=== PATIENT | female | born 1990 | race African-American/Black ===

== ENCOUNTER 2017-09-28 17:14 | Emergency (ER) | payer SELFPAY ==
[~2017-09-28] VITALS: Ht 152.4 cm; Wt 75.0 kg
[~2017-09-28 17:14] MED LIST: CIPR500T4 PO; IBUP-232 PO
[2017-09-28 17:24] VITALS: BP 135/80; PULSE 77; RESP 18; TEMP 98; O2SAT 100
[2017-09-28 18:07] LABS: BACTERIA, URINE OCC /hpf; BILIRUBIN, URINE NEG (NEG); BLOOD, URINE NEG (NEG); GLUCOSE,URINE NEG (NEG); KETONE, URINE NEG (NEG); MUCUS URINE FEW /lpf (OCC); NITRITE,URINE NEG (NEG); PH, URINE 5.5 (5.0-8.5); SQUAMOUS EPITHELIAL CELL URINE 2 /hpf (0-5); URINE COLOR LIGHT-YELLOW (YELLW/STRAW); URINE LEUKOCYTE ESTERASE SMALL (NEG)
[2017-09-28] MEDS ORDERED: CEPH-460 PO (18:31)
--- NOTE | 2017-09-28 18:32 | PD ---
HPI Chief Complaint: Abdominal Pain Time Seen by Provider: 17:42 Travel History International Travel<30 days: No Contact w/Intl Traveler<30days: No Traveled to known affect area: No History of Present Illness HPI 27-year-old female complains of vaginal spotting for 1-1/2 days. She took several regnancy test at home and they are all negative. Last menstruation was 1 month ago. No abnormal discharge. No fever or vomiting. No urinary complaint. Location genitourinary. severity mild. PFSH Past Medical History Medical History: Denies Significant Hx Diminished Hearing: No Tetanus Vaccination: Unknown Influenza Vaccination: No ?: Unknown LMP: JULY 2017 Past Surgical History Surgical History: No Previous Surgery Social History Alcohol Use: Yes (occasionally) Tobacco Use: Yes (BLACK AND MILDS) Substance Use: No Allergies-Medications (Allergen,Severity, Reaction): Coded Allergies: No Known Allergies (Unverified , 06/12/14) Reported Meds & Prescriptions Reported Meds & Active Scripts Active Cipro (Ciprofloxacin HCl) 500 Mg Tab 500 Mg PO BID Motrin (Ibuprofen) 600 Mg Tab 600 Mg PO TID Review of Systems Except as stated in HPI: all other systems reviewed are Neg General / Constitutional: No: Fever Physical Exam Narrative GENERAL: 27-year-old female pleasant well-nourished well-developed Vital Signs Date Time Temp Pulse Resp B/P (MAP) Pulse Ox O2 Delivery O2 Flow Rate FiO2 18 17:24 98.0 77 18 135/80 (98) 100 SKIN: Warm and dry. HEAD: Atraumatic. Normocephalic. EYES: Pupils equal and round. No scleral icterus. No injection or drainage. ENT: No nasal bleeding or discharge. Mucous membranes pink and moist. NECK: Trachea midline. No JVD. CARDIOVASCULAR: Regular rate and rhythm. RESPIRATORY: No accessory muscle use. Clear to auscultation. Breath sounds equal bilaterally. GASTROINTESTINAL: Abdomen soft, non-tender, nondistended. Hepatic and splenic margins not palpable. MUSCULOSKELETAL: Extremities without clubbing, cyanosis, or edema. No obvious deformities. NEUROLOGICAL: Awake and alert. No obvious cranial nerve deficits. Motor grossly within normal limits. Five out of 5 muscle strength in the arms and legs. Normal speech. PSYCHIATRIC: Appropriate mood and affect; insight and judgment normal. Data Data Last Documented VS Vital Signs Date Time Temp Pulse Resp B/P (MAP) Pulse Ox O2 Delivery O2 Flow Rate FiO2 09/28/17 17:24 98.0 77 18 135/80 (98) 100 Orders Orders Beta Hcg (Quant/Titer) (09/28/17 17:42) Urinalysis - C+S If Indicated (09/28/17 17:42) Ed Urine Pregnancytest Poc (09/28/17 17:42) Urine Culture (09/28/17 17:45) Labs Laboratory Tests Test 09/28/17 17:45 Urine Color LIGHT-YELLOW Urine Turbidity CLEAR Urine pH 5.5 Urine Specific Adrian 1.024 Urine Protein NEG mg/dL Urine Glucose (UA) NEG mg/dL Urine Ketones NEG mg/dL Urine Occult Blood NEG Urine Nitrite NEG Urine Bilirubin NEG Urine Urobilinogen LESS THAN 2.0 MG/DL Urine Leukocyte Esterase SMALL Urine RBC 1 /hpf Urine WBC 9 /hpf Urine Squamous Epithelial Cells 2 /hpf Urine Bacteria OCC /hpf Urine Mucus FEW /lpf Microscopic Urinalysis Comment CULTURE INDICATED Human Chorionic Gonadotropin, Quant LESS THAN 1 MIU/ML MDM Medical Decision Making Medical Screen Exam Complete: Yes Emergency Medical Condition: Yes Medical Record Reviewed: Yes Differential Diagnosis IUP, UTI, ectopic , ov torsion, appendicitis, TOA, cervicitis, BV, Trichomoniasis, ov cyst, hernia, mittelschmerz, pain from menstruation Narrative Course Urine is negative Urinalysis could be consistent with UTI with leukocytes and bacteria and a few WBCs The beta is less than 1 Diagnosis Primary Impression: Pyuria Referrals: Primary Care Physician call for appointment Med/Other Pt SpecificInfo: Prescription(s) given Scripts Cephalexin (Keflex) 500 Mg Cap 500 MG PO Q8H for Infection for 3 Days, #9 CAP 0 Refills Prov: Brant Jauregui MD 09/28/17 Disposition: 01 DISCHARGE HOME Condition: Stable Brant Jauregui MD September 28, 2017 18:32
== END 2017-09-28 18:41 | disposition home or self-care (01) ==
LOC: NEPD 17:14
DX: N39.0 Urinary tract infection, site not specified (principal); Z72.0 Tobacco use
CPT/HCPCS: 81001; 84702; 84703; 87086; 99283